=== PATIENT | male | born 1960 | race Caucasian/White ===

== ENCOUNTER 2023-02-27 10:16 | Day surgery (SDC) | payer BC ==
[2023-02-27] MEDS ORDERED: Lactated Ringers 1,000 ML IV ONE (11:15)
[2023-02-27] MEDS ORDERED: Lactated Ringers 1,000 ML IV SCH (11:30)
[2023-02-27] MEDS ORDERED: DIPRIVAN 200 MG/20 ML IV ONE ×2 (13:35→13:50)
[2023-02-27] MEDS ORDERED: Versed 2 MG/2 ML Injection ONE (13:35)
[2023-02-27 14:40] VITALS: O2SAT 96
[2023-02-27 14:47] VITALS: BP 165/91; PULSE 93
--- NOTE | 2023-03-01 08:14 | OP ---
PROCEDURE DATE/TIME: 02/27/2023 7677 PREOPERATIVE DIAGNOSES: 1) Due for surveillance colonoscopy. 2) History of polyps. POSTOPERATIVE DIAGNOSES: 1) Anterior benign appearing small anal tags. 2) Colon polyps. 3) Pancolonic diverticulosis with trace irritation of the sigmoid colon. PROCEDURES: 1) Colonoscopy with hot snare polypectomy. 2) Cold snare polypectomy. PROCEDURE PERFORMED BY: Caitlin Cruz M.D. ANESTHESIA: MAC. ESTIMATED BLOOD LOSS: Minimal. COMPLICATIONS: None. SPECIMENS: 1) Sigmoid polyp #1. 2) Sigmoid polyp #2. PROCEDURE DETAILS: This is a 62-year-old gentleman who presents for screening/surveillance colonoscopy. He has a history of polyps. All risks, benefits and alternatives have been discussed with the patient preoperatively. His H&P has been reviewed and completed and his consent is reviewed and signed. All questions have been answered to his satisfaction. He wants to proceed. DESCRIPTION OF PROCEDURE: He was brought to the endoscopy suite and laid in left lateral decubitus position. A complete time out performed. First a rectal inspection and then rectal exam were done. The only finding was that there was a small anterior anal tag which looked very benign. The hemorrhoid disease was minimal. The scope was then inserted and gently advanced to the level of the cecum. The prep overall was satisfactory. He did have significant diverticulosis throughout the entire colon extending to the level of the right colon. He also had multiple solid stool balls due to the diverticulosis but overall we had a satisfactory view and were able to see 90% of the colon mucosa. The scope was carefully withdrawn. We identified two polyps, one in the sigmoid colon that was semi-sessile about 3 to 4 mm taken in entirety with cold snare and then another sigmoid colon polyp that was about 6 to 7 mm semi-pedunculated and taken with hot snare. None of his polyps were close to a diverticula. We were very cautious taking this out. He also did have a trace amount of irritation in his sigmoid. It did not look to be oriented around just one pit but was in the range of 50 cm. He had very minimal irritation here. It looked more like it was due to the prep. He was also asymptomatic. The scope was then fully removed. He had no other findings. The remainder of his colon looked very healthy. The patient tolerated the procedure well. There were no immediate complications. Due to the findings of two polyps and his polyp history, at this time we will tentatively place him on a three year interval for colonoscopy.
== END 2023-02-27 14:50 | disposition home or self-care (01) ==
LOC: SDC 10:16
PROVIDERS: ATTEND Surgery
DX: Z12.11 Encounter for screening for malignant neoplasm of colon (principal); D12.5 Benign neoplasm of sigmoid colon; Z86.010 Personal history of colon polyps; K57.30 Diverticulosis of large intestine without perforation or abscess without bleeding; E11.9 Type 2 diabetes mellitus without complications; Z79.4 Long term (current) use of insulin
CPT/HCPCS: 82947; J2250; J2704